=== PATIENT | male | born 1945 | race Caucasian/White ===

== ENCOUNTER 2016-11-07 10:29 | Outpatient (CLI) | payer MEDICARE, MEDICAID ==
[~2016-11-07] VITALS: Ht 179.1 cm; Wt 120.0 kg
--- NOTE | ~2016-11-07 | HEMODYNAMI ---
PATIENT:OBED ARGUETA JR MEDICAL RECORD: [id number] : 45 LOCATION:[facility] ADMISSION DATE: 11/07/16 Generatedon:11/07/201613:56 Patient name: OBED ARGUETA Patient #: [id number] SSN: : 1945 Date of study: 11/07/2016 Page: Of Hemodynamic Procedure Report Patient Data Patient Demographics Procedure consent was obtained First Name: OBED Gender: Male Last Name: ELLIE Suffix: [facility] Initial: Maddie : 1945 Patient #: [id number] Age: 71 year(s) Race: Additional ID: [id number] Contact details Address: [address] [place] [address] a[address] State: [place] City: [facility] Zip code: [address] Past Medical History Allergies: No known allergies Admission Admission Data Admission Date: 11/07/2016 Admission Time: 10:29 Lab Results Lab Result Date: 11/07/2016 Lab Result Time: 11:00 Biochemistry Name Units Result Min Max BUN mg/dl 27 --(----)-* 7 18 Creatinine mg/dl 1.5 --(----)-* 0.6 1.3 CBC Name Units Result Min Max Hematocrit % 39.7 -*(----)-- 42 54 Hemoglobin g/dl 13.5 --(*---)-- 13.5 17.5 Procedure Procedure Types Cath Procedure Diagnostic Procedure LHC LH w/Coronaries FFR/IVUS Intra-Coronary IVUS Initial PCI Procedure Coronary Stent Initial Miscellaneous Procedures Moderate Sedation up to 30 minutes Procedure Description Procedure Date Procedure Date: 11/07/2016 Procedure Start Time: 13:19 Procedure End Time: 13:49 Procedure Staff Name Function Hussain Morse MD Performing Physician June Langston RN Nurse Marielena Eisenberg RT Scrub Sonido Caballero RT Monitor Procedure Data Cath Procedure Fluoroscopy Diagnostic fluoroscopy Total fluoroscopy Time: 5.1 time: 5.1 min min Diagnostic fluoroscopy Total fluoroscopy dose: 901 dose: 901 mGy mGy Contrast Material Contrast Material Type Amount (ml) Isovue 300 139 Entry Location Entry Primary Successful Side Size Upsize Upsize Entry Closure Succes sful Closure Location (Fr) 1 (Fr) 2 (Fr) Remarks Device Remarks Femoral Right 5 Fr 6 Fr Exoseal artery Short Estimated blood loss: 10 ml Diagnostic catheters Device Type Used For End Catheter Placement Cordis 5Fr JL 4.0 Procedure Catheter (MP) Cordis 5Fr 3DRC Catheter Procedure (MP) Cordis 5Fr Pigtail Procedure Catheter (MP) Procedure Complications No complications Procedure Medications Medication Administration Route Dosage Oxygen NC 2 l/min Lidocaine 2% added to field 20 Heparin Flush Bag added to field 2 bags (1000units/500ml NS) 0.9% NaCl I.V. 100 ml/hr Versed I.V. 1 mg Fentanyl I.V. 50 mcg Heparin Bolus I.V. 52911 units Versed I.V. 0.5 mg Fentanyl I.V. 25 mcg Plavix P.O. 600 mg Hemodynamics Rest HGB: 13.5 (g/dl) Heart Rate: 84 (bpm) Pressure Samples Time Site Value (mmHg) Purpose Heart Use Rate(bpm) 13:28 LV 234/7,40 Snapshot 88 13:29 AO 232/120(172) Pullback 89 13:29 LV 236/8,43 Pullback 89 Gradients Valve Time Site 1 Site 2 Mean SEP/DFP Peak To Heart Use (mmHg) (sec/min) Peak Rate (mmHg) (bpm) Aortic 13:29 LV AO 11 19 4 89 236/8,43 232/120(172) Calculations Valve P-P Mean Valve Index Valve Source Name Gradient Area Flow (cm2) Aortic 4 11 4 11 Snapshots Pre Cath Intra NCS Post Cath Vital Signs Time Heart Resp SPO2 etCO2 RC3ldgf NIBP (mmHg) Rhythm Pain Sedatio n Rate (ipm) (%) (mmHg) (mmHg) Status Level (bpm) 13:03:31 78 17 97 0 0 203/118(164) NSR 0 (11) 10(A) , No pain 13:08:11 77 18 97 0 0 207/129(175) NSR 0 (11) 10(A) , No pain 13:12:50 84 15 97 0 0 199/119(175) NSR 0 (11) 10(A) , No pain 13:17:29 82 22 96 0 0 195/109(157) NSR 0 (11) 10(A) , No pain 13:22:07 82 16 99 0 0 201/126(155) NSR 0 (11) 10(A) , No pain 13:26:50 84 17 99 0 0 208/131(176) NSR 0 (11) 9(A) , No pain 13:31:36 84 16 98 0 0 222/127(179) NSR 0 (11) 9(A) , No pain 13:36:13 84 17 98 0 0 183/112(168) NSR 0 (11) 9(A) , No pain 13:40:47 84 14 99 0 0 195/118(157) NSR 0 (11) 9(A) , No pain 13:45:28 85 16 100 0 0 213/121(167) NSR 0 (11) 10(A) , No pain 13:50:17 85 17 100 0 0 209/133(181) NSR 0 (11) 10(A) , No pain Medications Time Medication Route Dose Verified Delivered Reason Notes Effectiveness by by 13:04:23 Oxygen NC 2 Hussain Buffie used for l/min Lamont Langston RN procedure 13:18:36 Lidocaine 2% added 20ml Hussain Hussain for local to vial Lamont Morse MD anesthetic field 13:18:43 Heparin Flush added 2 bags Hussain Hussain used for Bag to Lamont Morse MD procedure (1000units/500ml field NS) 13:18:53 0.9% NaCl I.V. 100 Hussain Buffie Per physician ml/hr Lamont Langston RN 13:21:41 Versed I.V. 1 mg Hussain Buffie for sedation Lamont Langston RN 13:21:47 Fentanyl I.V. 50 mcg Hussain Buffie for sedation Lamont Langston RN 13:32:37 Heparin Bolus I.V. 12,000 Hussain Buffie for verif ied units Lamont Langston RN anticoagulation with dr morse 13:37:13 Versed I.V. 0.5 mg Hussain Buffie for sedation Lamont Langston RN 13:37:17 Fentanyl I.V. 25 mcg Hussain Buffie for sedation Morse MD Langston RN 13:54:25 Plavix P.O. 600 mg Hussain Langston RN antiplatelet therapy Procedure Log Time Note 12:51:39 Milton Jess RT (R) (CV) sent for patient. Start room use. 12:51:55 Time tracking: Regular hours 12:52:08 Plan of Care:Hemodynamics will remain stable., Cardiac rhythm will remain stable., Comfort level will be maintained., Respiratory function will remain adequate., Patient/ family verbilizes understanding of procedure., Procedure tolerated without complication., Recovers from procedure without complications.. 12:52:43 Patient received from Pre/Post Procedure Room to CCL 1 Alert and oriented. Tansferred to table in Supine position. 12:52:50 Warm blankets applied, and erwin hugger turned on for patient comfort. 12:52:50 Correct patient and procedure confirmed by team. 12:52:51 Signed procedure consent form obtained from patient. 12:52:52 ECG and BP/O2 sat monitors applied to patient. 12:52:53 Full Disclosure recording started 13:00:53 Vital chart was started 13:04:23 Oxygen 2 l/min NC was administered by June Langston RN; used for procedure; 13:13:20 H&P Date Dictated: 10/09/2016 Within 30 days and on chart., H&P Addendum completed by physician on day of procedure. (MUST COMPLETE FOR ALL OUTPATIENTS). 13:13:22 Pre-procedure instructions explained to patient. 13:13:22 Pre-op teaching completed and patient verbalized understanding. 13:13:23 Family in waiting room. 13:13:25 Patient NPO since Midnight. 13:13:32 Patient allergic to No known allergies 13:13:46 Is the patient allergic to Iodine/contrast media? No. 13:13:53 Is patient on blood thinner?No 13:14:03 Patient diabetic? Yes. 13:14:06 If diabetic: On Metformin? No 13:14:11 Snore? Yes 13:14:14 Sleep apnea? Yes 13:14:24 Deviated septum? No 13:14:24 Opens mouth fully? Yes 13:14:25 Sticks out tongue? Yes 13:14:28 Airway obstruction? No ? 13:14:32 Dentures? No ? 13:14:46 Patient pain scale 0/10 ?. 13:14:53 IV patent on arrival in left hand with 0.9% NaCl at [facility]. 13:15:27 Lab Result : BUN 27 mg/dl 13:15:27 Lab Result : Hemoglobin 13.5 g/dl 13:15:27 Lab Result : Creatinine 1.5 mg/dl 13:15:27 Lab Result : Hematocrit 39.7 % 13:15:29 Lab results completed and on chart. 13:15:32 Right groin area was prepped with chlora-prep and draped in sterile fashion 13:15:35 Alarms reviewed by R. N. 13:15:37 Use device set Femoral Dx 13:15:38 Tegaderm 4 x 4 opened to sterile field. 13:15:39 Acist Manifold opened to sterile field. 13:15:39 Acist Hand Control opened to sterile field. 13:15:41 Acist Syringe opened to sterile field. 13:15:41 Bag Decanter opened to sterile field. 13:15:41 Medline Cath Pack opened to sterile field. 13:15:42 Terumo 5Fr [place] Sheath opened to sterile field. 13:15:42 St Shorty 260cm J .035 wire opened to sterile field. 13:15:44 Diagnostic Infinity 5Fr Multipack catheter opened to sterile field. 13:15:55 Baseline sample Acquired. 13:16:00 Rhythm: sinus rhythm 13:16:05 Sharps counted by scrub and verified by R.N. 13:16:10 Physician arrived 13:16:11 --------ALL STOP TIME OUT------ 13:16:11 Final Timeout: patient, procedure, and site verified with staff and physician. All members of the team are in agreement. 13:16:13 Right groin site verified by team. 13:16:15 Physical assessment completed. ASA score P 2 - A patient with mild systemic disease as per Hussain Morse MD. 13:16:18 Sedation plan: IV Moderate Sedation Versed, Fentanyl 13:18:36 Lidocaine 2% 20ml vial added to field was administered by Hussain Morse MD; for local anesthetic; 13:18:43 Heparin Flush Bag (1000units/500ml NS) 2 bags added to field was administered by Hussain Morse MD; used for procedure; 13:18:53 0.9% NaCl 100 ml/hr I.V. was administered by June Langston RN; Per physician; 13:19:18 Procedure started. 13:19:20 Local anesthetic to right femoral artery with Lidocaine 2% by Hussain Morse MD.INITIAL ACCESS ONLY 13:19:38 A 5 Fr sheath was inserted into the Right Femoral artery 13:21:09 A Cordis 5Fr JL 4.0 Catheter (MP) was advanced over the wire and used for Procedure. 13:21:41 Versed 1 mg I.V. was administered by June Langston RN; for sedation; 13::47 Fentanyl 50 mcg I.V. was administered by June Langston RN; for sedation; 13:22:22 LCA angiography performed. 13:25:49 Catheter exchanged over wire. 13:26:02 A Cordis 5Fr 3DRC Catheter (MP) was advanced over the wire and used for Procedure. 13:26:52 RCA angiography performed. 13:27:30 A Cordis 5Fr Pigtail Catheter (MP) was advanced over the wire and used for Procedure. 13:28:28 LV gram done using CULLEN 13:28:36 Injector settings: Ml/sec: 10, Volume: 20, 13:28:50 EF : 35 % 13:29:45 Catheter removed. 13:29:53 Terumo 6Fr [place] Sheath opened to sterile field. 13:29:54 [place] Eagley[place] IVUS Catheter opened to sterile field. 13:29:54 Merit BasixCompak Inflation Kit opened to sterile field. 13:30:08 Sheath upsized to a 6 Fr Short. 13:31:13 Cordis 6FR XBLAD 3.5 guide catheter opened to sterile field. 13:31:26 6 Fr xblad 3.5 guide catheter was inserted over the wire 13:31:38 Laboy BMW [place] 2 J-tip 300cm 0.014 guide wir opened to sterile field. 13:31:54 BMW wire advanced. 13:32:37 Heparin Bolus 12,000 units I.V. was administered by June Langston RN; for anticoagulation; verified with dr morse 13:32:44 High Pressure Extension Tubing (Lamont) opened to sterile field. 13:34:58 Wire advanced across lesion. 13:35:00 IVUS catheter advanced over wire. 13:35:27 IVUS pass to Circ lesion performed. 13:37:13 Versed 0.5 mg I.V. was administered by June Langston RN; for sedation; 13:37:17 Fentanyl 25 mcg I.V. was administered by June Langston RN; for sedation; 13:38:20 IVUS catheter removed over wire. 13:42:32 Inflation Number: 1 A Medtronic Integrity 4.0 X 15 stent was prepped and advanced across the Mid CX. The stent was deployed at 15 MARILUZ for 0:10 (min:sec). 13:46:38 Stent catheter was removed intact over wire. 13:46:39 Wire removed. 13:46:40 Guide catheter removed. 13:46:46 Cordis 6Fr Exoseal opened to sterile field. 13:46:54 Sheath removed intact; hemostasis achieved with Exoseal to the Right Femoral artery. 13:46:56 Procedure ended.(Physican Out) 13:46:58 Fluoroscopy time 05.10 minutes. 13:47:02 Fluoroscopy dose: 901 mGy 13:47:02 Flurop Dose total: 901 13:47:07 Contrast amount:Isovue 300 139ml. 13:47:08 Sharps counted by scrub and verified by R.N. 13:47:09 Insertion/operative site no bleeding no hematoma. 13:47:12 Post-op/insertion site Right Femoral artery dressed using a 4 x 4 and Tegaderm. 13:47:16 Post right femoral artery:stable, soft, clean and dry 13:47:18 Post Procedure Pulses reassessed and unchanged 13:47:21 Post-procedure physical assessment completed. ASA score P 2 - A patient with mild systemic disease as per Hussain Morse MD. 13:47:23 Post procedure rhythm: unchanged. 13:47:26 Estimated blood loss: 10 ml 13:47:32 Post procedure instruction explained to patient.Patient verbalizes understanding. 13:47:35 Patient needs reinforcement of post procedure teaching. 13:48:11 Procedure type changed to Cath procedure, Diagnostic procedure, LHC, LHC w/Coronaries, FFR/IVUS, Intra-Coronary IVUS Initial, PCI procedure, Coronary Stent Initial, Miscellaneous Procedures, Moderate Sedation up to 30 minutes 13:48:38 Procedure and supply charges have been captured, reviewed, submitted and are correct. 13:48:45 Procedure Complication : No complications 13:49:30 Vital chart was stopped 13:49:31 See physician's report for complete and final results. 13:49:32 Report given to Pre/Post Procedure Room. 13:49:35 Patient transfered to Pre/Post Procedure Room with Stretcher. 13:49:38 Procedure ended. 13:49:38 Full Disclosure recording stopped 13:49:45 End room use (Document Last) 13:51:32 St Shorty Femstop Arch Gold opened to sterile field. 13:54:25 Plavix 600 mg P.O. was administered by June Langston RN; for antiplatelet therapy; 13:55:41 St Shorty Femstop Arch Gold opened to sterile field. 13:55:55 Femstop placed over the right femoral artery at 220 mmHg. Hemostasis achieved. Intervention Summary Intervention Notes Time ActionType Lesion and Equipment Action# Pressure Duration Attributes Used 13:42:32 Place stent Mid CX Medtronic 1 15 00:10 Integrity 4.0 X 15 stent Device Usage Item Name Manufacture Quantity Catalog Hospital Part Current Minimal L ot# / Number Charge Number Stock Stock Serial# Code Tegaderm 4 3M 1 [id number] 848320 [id number] 5 x 4 Acist Acist 1 50592 653951 056075 457458 5 Manifold Medical Systems Inc Acist Hand Acist 1 90013 228747 773427 054134 5 Control Medical Systems Inc Acist Acist 1 94541 035350 884951 017818 20 Syringe Medical Systems Inc Bag Microtek 1 2002S 306577 92045 160861 5 Decanter Medical Inc. Medline Cardinal 1 [id number] 646580 44394 973313 5 Cath Pack Health Terumo 5Fr Terumo 1 [id number] 768812 213368 647298 [address] [place] [address] Shorty 1 485750 733545 323481 215984 30 260cm J .035 wire Diagnostic Cardinal 1 [id number] 944572 12771 857752 30 Infinity Health 5Fr Multipack catheter Cordis 5Fr Cardinal 1 905317 5 JL 4.0 Health Catheter (MP) Cordis 5Fr Cardinal 1 320477 5 3DRC Health Catheter (MP) Cordis 5Fr Cardinal 1 056497 5 Pigtail Health Catheter (MP) Terumo 6Fr Terumo 1 [id number] 799830 723672 561972 40 [place] Sheath [place] 1 [id number] 351035 442106 378085 8 [place] Eagleye IVUS Catheter Merit Merit 1 [id number] 459262 579719 396948 15 BasixCompak Medical Inflation Kit Cordis 6FR Cardinal 1 [id number] 155007 584382 304626 10 XBLAD 3.5 Health guide catheter Laboy BMW Laboy 1 [id number] 001398 674409 226374 5 [place] 2 Vascular J-tip 300cm 0.014 guide wir High Merit 1 [id number] 416801 46181 087260 10 Pressure Medical Extension Tubing (Morse) Medtronic Medtronic 1 [id number] 372363 623915 1 0 [id number] Integrity 4.0 X 15 stent Cordis 6Fr Cardinal 1 EX600 726637 564992 414588 [address] [facility] [address] Shorty 2 [id number] 498644 722487 499547 5 Femstop Arch Gold Signature Audit [place] Stage Time Signature Unsigned Intra-Procedure 11/07/2016 Sonido Caballero 1:56:46 PM RT(R) Signatures Monitor : Sonido Caballero RT Signature : Date : Time : [place] [address] [place] [address]
[~2016-11-07 10:29] MED LIST: ALDACTONE25 MG PO; ANUSOL-HC25 MG RC; ASPERCREME 5 OZ5 OZ TOPICAL; ASPIRIN EC81 M1 PO; ASPIRIN325 MG PO; BAYER CHEWABLE81 MG PO; CELEBREX200 MG PO; FLOMAX0.4 MG PO; FUROSEMIDE20 MG PO; GLUCOTROL ER2.5 MG PO; HUMALOG 30100 UNITS/ SC; HYDRALAZINE HCL10 MG PO; KLONOPIN0.5 MG PO; KLOR-CON 1010 MEQ PO; LASIX40 MG PO; LIPITOR10 MG PO; LOTRISONE CREAM45 GM TOPICAL; MAG-OXIDE400 MG PO; MIRALAX17 GM PO; NYSTATIN1 PWD TOPICAL; PAXIL20 MG PO; PHENERGAN25 MG RC; POTASSIUM CHLO10 ME1 PO; PRILOSEC20 MG PO; PRINIVIL10 MG PO; PROAIR HFA8.5 GM INH; PROTONIX40 MG PO; PROVIGIL200 MG PO; SPIRIVA18 MCG INH; ZAROXOLYN5 MG PO; ZOFRAN4 MG PO; ZYLOPRIM100 MG PO; ZYLOPRIM300 MG PO
[2016-11-07 10:55] VITALS: BP 197/104; Ht 179.1 cm; Wt 120.0 kg
[2016-11-07] MEDS ORDERED: LASIX40 MG PO (11:01)
[2016-11-07] MEDS ORDERED: HYDRALAZINE HCL10 MG PO (11:01)
[2016-11-07 11:07] LABS: BASOPHILS 0.4 % (0-2); EOSINOPHILS 3.3 % (0-7); HEMATOCRIT 39.7 % (42.0-54.0); HEMOGLOBIN 13.5 g/dL (13.5-17.5); IMMATURE GRANULOCYTES 0.5 % (0-5); LYMPHOCYTES 23.4 % (15-50); MCH 27.8 pg (26.0-34.0); MCV 81.7 fL (80.0-100.0); MEAN PLATELET VOLUME 10.6 fL (7.4-10.4); MONOCYTES 9.4 % (2-11); PLATELET COUNT 175 10x3/uL (130-400); RBC 4.86 10x6/uL (4.20-6.10); RDW 13.9 % (11.5-14.5); WBC 5.5 10x3/uL (4.8-10.8)
[2016-11-07 11:15] LABS: ANION GAP 8.6 mmol/L (8-16); CALCIUM 8.6 mg/dL (8.5-10.1); CARBON DIOXIDE 30.8 mmol/L (21.0-32.0); CREATININE - SERUM 1.5 mg/dL (0.6-1.3); POTASSIUM - SERUM 3.4 mmol/L (3.5-5.1)
--- NOTE | 2016-11-07 14:20 | NUR ---
2L NC, NO RESP DISTRESS NOTED. RIGHT GROIN 6F EXOSEAL CDI, NO BLEEDING NOTED. FEMSTOP IN PLACE @ 180. NO C/O CHEST PAIN OR NAUSEA. VSS.
[2016-11-07] MEDS ORDERED: PLAVIX75 MG PO (14:35)
--- NOTE | 2016-11-07 14:50 | NUR ---
2L NC, NO RESP DISTRESS NOTED. VSS. RIGHT GROIN 6F EXOSEAL CDI, NO BLEEDING OR HEMATOMA NOTED. FEMSTOP IN PLACE. CALL LIGHT WITHIN REACH.
--- NOTE | 2016-11-07 15:05 | NUR ---
FEMSTOP PRESSURE DECREASED BY 20. NO BLEEDING NOTED.
--- NOTE | 2016-11-07 15:35 | NUR ---
FEMSTOP PRESSURE AT 90. NO BLEEDING NOTED. VSS. NO C/O AT THIS TIME.
--- NOTE | 2016-11-07 16:05 | NUR ---
REMAINING AIR REMOVED FROM FEMSTOP. NO BLEEDING OR HEMATOMA NOTED. VSS. NO C/O OF PAIN OR NAUSEA. WILL CONTINUE TO MONITOR.
--- NOTE | 2016-11-07 17:45 | NUR ---
VOIDED 300CC OF CLEAR YELLOW URINE.
--- NOTE | 2016-11-07 18:10 | NUR ---
LEFT FA PIV D/C'D WITH CATHETER INTACT, BAND AID TO SITE. UP TO BEDSIDE TO GET DRESSED.
--- NOTE | 2016-11-07 18:20 | NUR ---
DISCHARGE INSRUCTIONS GIVEN, VERBALIZED UNDERSTANDING.
--- NOTE | 2016-11-07 18:25 | NUR ---
TAKEN OUT VIA WHEELCHAIR BY CATH CLOTH CUTTER. LEFT FACILITY WITH FAMILY MEMBER AND ALL PERSONAL BELONGINGS.
== END 2016-11-07 18:25 | disposition home or self-care (01) ==
LOC: D.CATH 10:29
PROVIDERS: Internal Medicine Cardiovascular Disease
DX: I25.119 Atherosclerotic heart disease of native coronary artery with unspecified angina pectoris (principal); Z01.812 Encounter for preprocedural laboratory examination

== ENCOUNTER 2016-11-20 19:40 | Inpatient (IN) | payer MEDICARE, MEDICAID ==
[~2016-11-20] VITALS: Ht 177.8 cm; Wt 118.4 kg
[~2016-11-20 19:40] MED LIST changes: +PLAVIX75 MG PO
[2016-11-20 20:27] LABS: BASOPHILS 0.4 % (0-2); EOSINOPHILS 2.9 % (0-7); HEMATOCRIT 42.8 % (42.0-54.0); HEMOGLOBIN 14.5 g/dL (13.5-17.5); IMMATURE GRANULOCYTES 0.2 % (0-5); LYMPHOCYTES 21.3 % (15-50); MCH 27.8 pg (26.0-34.0); MCHC 33.9 g/dL (31.0-37.0); MEAN PLATELET VOLUME 10.9 fL (7.4-10.4); MONOCYTES 6.7 % (2-11); NEUTROPHILS 68.5 % (40-80); PLATELET COUNT 173 10x3/uL (130-400); RBC 5.22 10x6/uL (4.20-6.10); RDW 14.2 % (11.5-14.5); WBC 5.2 10x3/uL (4.8-10.8)
[2016-11-20 20:28] LABS: APPEARANCE CLEAR (CLEAR); COLOR YELLOW (YELLOW); LEUKOCYTE ESTERASE NEGATIVE (NEGATIVE); NITRITE NEGATIVE (NEGATIVE)
[2016-11-20 20:29] LABS: BILIRUBIN NEGATIVE (NEGATIVE); GLUCOSE NEGATIVE (NEGATIVE); KETONE NEGATIVE (NEGATIVE); PROTEIN TRACE mg/dL (NEGATIVE); UROBILINOGEN NORMAL (NORMAL)
[2016-11-20 20:57] LABS: ALBUMIN 3.5 g/dL (3.4-5.0); ANION GAP 15.1 mmol/L (8-16); BILIRUBIN - TOTAL 0.5 mg/dL (0.2-1.3); CALCIUM 8.5 mg/dL (8.5-10.1); CREATININE - SERUM 1.5 mg/dL (0.6-1.3); POTASSIUM - SERUM 3.1 mmol/L (3.5-5.1); PROTEIN - SERUM 7.3 g/dL (6.4-8.2)
--- NOTE | 2016-11-20 23:13 | NUR ---
REPORT ON PT FROM SON TONEY FROM ER.
--- NOTE | 2016-11-20 23:27 | NUR ---
PT ARRIVED TO UNIT. WALKED TO RESTROOM VOIDED A LARGE AMOUNT. PT DENIES FEELING DIZZY. PT NOTIFIED OF ORDER TO BE ON BED REST. WILL GET PT A URINAL. PT ALSO NOTIFIED OF NEEDING SCD'S AND EDUCATION ON THAT VERBALIZED AND PT VERBALIZED UNDERSTANDING. PT NOTIFIED OF MONITOR. WILL GET TELEMETRY FROM PHOTO CHECKER. PT STATES " I FEEL FINE. I FEEL SO GOOD I COULD WALK OUT OF HERE" PT CALL LIGHT IN REACH AND BED IS LOW. PT WILL CALL FOR ASSIST WHEN NEEDED
[2016-11-21] VITALS (7 sets, daily range): BP systolic 148–187; BP diastolic 79–97; Ht 177.8 cm; Wt 118.4 kg
--- NOTE | 2016-11-21 03:41 | NUR ---
PT ASLEEP. RESPIRATIONS EVEN AND UNLABORED. BEDLOW AND CALLLIGHT WITHIN REACH. NO S/S OF DISTRESS WILL CONTINUE TO MONITOR
--- NOTE | 2016-11-21 20:42 | NUR ---
PT RESTING IN BED. IV TO LEFT WRIST NS @ 10. NO S/S OF DISTRESS. BED LOW CALLLIGHT WITHIN REACH. WILL CONTINUE TO MONITOR
--- NOTE | 2016-11-22 00:24 | NUR ---
PT RESTING IN ROOM. DENIES ANY NEEDS AT THIS TIME NO S/S OF DISTRESS. WILL CONTINUE TO MONITOR
[2016-11-22 01:00] VITALS: BP 169/63
--- NOTE | 2016-11-22 03:46 | NUR ---
PT ASLEEP. RESPIRATIONS EVEN AND UNLABORED. NO S/S OF DISTRESS WILL CONTINUE TO MONITOR
[2016-11-22 04:21] VITALS: BP 176/88
[2016-11-22 08:00] VITALS: BP 194/97
--- NOTE | 2016-11-22 08:11 | NUR ---
AM ROUNDS - PT IS AWAKE AND IN BED. SCDS ARE OFF AT THIS TIME. PT HAS A YELLOW BAND ON. IV TO LEFT WRIST, NS AT 10CC/HR. MONITOR SHOWING SR, HR 66. BED AT LOWEST POSITION, CALL TORRES INUSE/REACH, SIDE RAILS UP X2. WILL CONTINUE TO MONITOR
[2016-11-22 12:43] VITALS: BP 159/82
[2016-11-22 16:00] VITALS: BP 206/107
--- NOTE | 2016-11-22 19:19 | NUR ---
RECEIVED REPORT, WILL ASSUME CARE OF PT, PT UP TO REST ROOM, DENIES ANY NEEDS, AT THIS TIME, CALL LIGHT IN REACH, WILL CONTINUE PLAN OF CARE
[2016-11-22 20:00] VITALS: BP 146/101
--- NOTE | 2016-11-23 02:11 | NUR ---
ASSESSMENT COMPLETE, SEE FLOW SHEET, DENIES ANY NEEDS AT THIS TIME, BED IS LOW, SRX2, CALL LIGHT IN REACH, WILL CONTINUE PLAN OF CARE
[2016-11-23 04:20] VITALS: BP 186/100
[2016-11-23 08:00] VITALS: BP 179/103
--- NOTE | 2016-11-23 08:34 | NUR ---
SITTING UP ON BEDSIDE EATING BREAKFAST. NO DISTRESS.
--- NOTE | 2016-11-23 10:22 | NUR ---
PATIENT REQUESTED NOT TO BE HOOKED UP TO IV NS. WALKING WANTING TO TAKE A SHOWER AND WALK AROUND ROOM. PATIENT HAS DRANK 620CC OF FLUIDS THIS AM. ASKED FOR A LARGE GLASS OF ICE WATER.
--- NOTE | 2016-11-23 11:02 | NUR ---
DR. ADAME NOTIFIED OF B/P 192. NEW ORDERS RECEIVED.
--- NOTE | 2016-11-23 12:10 | NUR ---
B/P 179/98. DR ADAME HAS STATED THAT HE WILL BE INTO SEE THIS PATIENT TODAY.
[2016-11-23 12:30] VITALS: BP 192/95
[2016-11-23 12:44] VITALS: BP 178/98
--- NOTE | 2016-11-23 14:21 | NUR ---
Nutrition Follow Up: Pt is eating 92% meal avg on a diabetic diet. +BM 11/21/16. Labs reviewed. Meds noted including Humulin. Rec continue current diet. RD following.
[2016-11-23 15:38] VITALS: BP 131/70
--- NOTE | 2016-11-23 16:51 | NUR ---
GLUCOSE LEVEL 166. PATIENT REFUSED SLIDING SCALE INSULIN
[2016-11-23 19:00] VITALS: BP 188/98
--- NOTE | 2016-11-23 19:20 | NUR ---
RETURNING TO BED FROM BATHROOM. ORIENTED X 4. DENIES PAIN OR ANY NEEDS. TELEMETRY SHOWS 69 SR. REFUSED SCD'S ON. HAS CALL LIGHT IN REACH.
--- NOTE | 2016-11-23 22:35 | NUR ---
PULLED IV OUT. RESITED IN RT HAND 22G. C/O NO BM SINCE SUNDAY. GAVE HIM SOME PRUNE JUICE.
[2016-11-24] VITALS: BP 161/74
[2016-11-24 04:00] VITALS: BP 133/79
--- NOTE | 2016-11-24 05:45 | NUR ---
RETURNING TO BED FROM BR. STATED HE HAD A BM, CONSISITING OF SMALL FORMED STOOL. CHECKED BS AT 107.
[2016-11-24 08:01] VITALS: BP 176/90
[2016-11-24 11:52] VITALS: BP 178/92
[2016-11-24 16:07] VITALS: BP 179/88
--- NOTE | 2016-11-24 16:12 | NUR ---
BLOOD SUGAR OF 109, NO COVERAGE GIVEN PER S/S. PT UP TO SIDE OF BED, DENIES ANY NEEDS AT THIS TIME. CALL LIGHT IN REACH, NAD NOTED. WILL CONTINUE TO MONITOR.
[2016-11-24 19:00] VITALS: BP 178/89
--- NOTE | 2016-11-24 21:50 | NUR ---
REQUESTED ANOTHER BLANKET. CHECKED BLOOD SUGAR AT 147. DENIES ANY NEEDS OR DISCOMFORTS.
--- NOTE | 2016-11-25 02:35 | NUR ---
LYING ON LEFT SIDE WITH EYES CLOSED. NO S/S OF DISCOMFORT. CL IN REACH.
[2016-11-25 04:00] VITALS: BP 172/86
--- NOTE | 2016-11-25 07:30 | NUR ---
RECEIVED REPORT. ASSUMED CARE OF PATIENT. PATIENT SITTING TO SIDE OF BED. ALERT/ORIENTED. RESP EVEN AND UNLABORED. PATIENT STATES THAT HE MIGHT GET TO GO HOME TODAY. PATIENT PLEASANT. DENIES NEEDS AT THIS TIME. NO DISTRESS. CALL LIGHT WITHIN REACH.
[2016-11-25 08:00] VITALS: BP 194/100
[2016-11-25] MEDS ORDERED: PLAVIX75 MG PO (10:54)
[2016-11-25] MEDS ORDERED: SPIRIVA18 MCG INH (10:54)
[2016-11-25] MEDS ORDERED: HYDRALAZINE HCL10 MG PO (10:55)
[2016-11-25] MEDS ORDERED: ASPIRIN EC81 M1 PO (10:55)
[2016-11-25] MEDS ORDERED: PAXIL20 MG PO (10:55)
[2016-11-25] MEDS ORDERED: LIPITOR10 MG PO (10:55)
[2016-11-25] MEDS ORDERED: LASIX40 MG PO (10:55)
[2016-11-25] MEDS ORDERED: ZYLOPRIM100 MG PO (10:55)
[2016-11-25] MEDS ORDERED: GLUCOPHAGE500 MG PO (10:56)
--- NOTE | 2016-11-25 11:19 | NUR ---
FSBA 127. NO INSULIN PER SLIDING SCALE.
[2016-11-25 11:53] VITALS: BP 151/66
--- NOTE | 2016-11-25 14:11 | NUR ---
1315 22 GAUGE IV REMOVED FROM RIGHT WRIST. CATHETER TIP INTACT. NO BLEEDING FROM SITE. 2X2 GAUZE APPLIED AND SECURED WITH TAPE. TOLERATED IV REMOVAL WELL. 1318 TELEMETRY REMOVED 1320 DISCHARGE INSTRUCTIONS PROVIDED TO PATIENT. PATIENT'S MEMBERSHIP ADVISOR ALSO PRESENT DURING DISCHARGE INSTRUCTIONS. PATIENT VERBALIZED ALL INSTRUCTIONS PROVIDED. 1330 PATIENT LEFT UNIT IN WHEELCHAIR. PATIENT LEFT UNIT WITH ALL PERSONAL BELONGINGS. PATIENT DISCHARGED TO HOME VIA PERSONAL CAR. PATIENT IN NO DISTRESS UPON LEAVING UNIT.
--- NOTE | 2016-11-25 14:52 | NUR ---
LATE ENTRY 1130 CM NOTIFIED OF PATIENT DISCHARGE. HE IS 71 YEARS OF AGE. DISCHARGE STATES RETURN TO [facility]. HIS FACE SHEET STATES HE LIVES IN AN APARTMENT. LATE ENTRY 1130 CM MET WITH PATIENT AT THE BEDSIDE. HE LIVES IN AN APARTMENT. HE HAS SERVICES WITH [facility] ON [address]. HE STATES HE RECEIVECS CARE FROM A SERIALS LIBRARIAN NAMED OSKAR BERNABE OR JONY. CM WILL CALL [facility] ON SUNDAY THE OFFICE IS NOT AVAILABLE ON THE WEEKEND. HE HAS NOTIFIED HIS IMPORT COORDINATOR "[employer]" TO PROVIDE TRANSPORTATION TO HOME. HE FEELS SAFE. ALL OF HIS UTILITIS WERE FUNCTIONAL WHEN HE LEFT HOME. HE OCCASIONALLY UTILIZES A CANE AND WALKER. HE HAS A SHOWER CHAIR AND SAFETY BARS IN THE SHOWER. DENIES ANY NEEDS. PCP - DR ADAME [facility]ACY- [facility]
== END 2016-11-25 13:45 | disposition home or self-care (01) | DRG 190 ==
LOC: D.ER 19:40 → D.M2 22:43
PROVIDERS: Emergency Medicine; ADMIT Legal Medicine
DX: J44.0 Chronic obstructive pulmonary disease with (acute) lower respiratory infection (principal); J18.9 Pneumonia, unspecified organism; K56.60 Unspecified intestinal obstruction; R60.0 Localized edema; I25.10 Atherosclerotic heart disease of native coronary artery without angina pectoris; E87.6 Hypokalemia; Z79.4 Long term (current) use of insulin; E11.22 Type 2 diabetes mellitus with diabetic chronic kidney disease; I12.9 Hypertensive chronic kidney disease with stage 1 through stage 4 chronic kidney disease, or unspecified chronic kidney disease; N18.3 Chronic kidney disease, stage 3 (moderate); K29.70 Gastritis, unspecified, without bleeding

== ENCOUNTER → 2017-02-02 10:14 | Outpatient (CLI) | payer MEDICARE, MEDICAID ==
[2016-11-21 13:46] VITALS: BMI 37.0
[~2017-02-02 10:14] MED LIST changes: +GLUCOPHAGE500 MG PO
== END | disposition home or self-care (01) ==
LOC: D.RAD 10:14
DX: M25.551 Pain in right hip (principal)

== ENCOUNTER 2017-09-09 07:32 | Emergency (ER) | payer MEDICARE, MEDICAID ==
[2016-11-21 13:46] VITALS: BMI 37.0
[2017-09-09 08:55] LABS: BASOPHILS 0.2 % (0-2); EOSINOPHILS 2.7 % (0-7); HEMATOCRIT 38.2 % (42.0-54.0); HEMOGLOBIN 12.3 g/dL (13.5-17.5); IMMATURE GRANULOCYTES 0.2 % (0-5); LYMPHOCYTES 15.9 % (15-50); MCH 26.5 pg (26.0-34.0); MCHC 32.2 g/dL (31.0-37.0); MCV 82.3 fL (80.0-100.0); MEAN PLATELET VOLUME 10.5 fL (7.4-10.4); MONOCYTES 11.6 % (2-11); NEUTROPHILS 69.4 % (40-80); PLATELET COUNT 171 10x3/uL (130-400); RBC 4.64 10x6/uL (4.20-6.10); RDW 16.6 % (11.5-14.5); WBC 5.9 10x3/uL (4.8-10.8)
[2017-09-09 09:25] LABS: ALBUMIN 2.6 g/dL (3.4-5.0); BILIRUBIN - TOTAL 0.7 mg/dL (0.2-1.3); CALCIUM 8.4 mg/dL (8.5-10.1); CARBON DIOXIDE 31.5 mmol/L (21.0-32.0); CREATININE - SERUM 2.2 mg/dL (0.6-1.3); POTASSIUM - SERUM 3.5 mmol/L (3.5-5.1); PROTEIN - SERUM 6.5 g/dL (6.4-8.2)
== END 2017-09-09 12:05 | disposition home or self-care (01) ==
LOC: D.ER 07:32
PROVIDERS: Family Medicine
DX: R60.0 Localized edema (principal); J44.9 Chronic obstructive pulmonary disease, unspecified; I12.9 Hypertensive chronic kidney disease with stage 1 through stage 4 chronic kidney disease, or unspecified chronic kidney disease; N18.9 Chronic kidney disease, unspecified

== ENCOUNTER 2017-09-21 16:04 | Inpatient (IN) | payer MEDICARE, MEDICAID ==
[~2017-09-21] VITALS: Ht 177.8 cm; Wt 101.3 kg
--- NOTE | ~2017-09-21 | EC ---
PATIENT:OBED ARGUETA DATE OF SERVICE: 09/21/17 SEX: M MEDICAL RECORD: [id number] DATE OF : [birth year] LOCATION:D. D.211 AGE OF PATIENT: 72 ADMISSION DATE: 09/23/17 REFERRING PHYSICIAN: INTERPRETING PHYSICIAN: ANA ROSA DANG MD ECHOCARDIOGRAM REPORT ECHO CHARGES 4 ECHO COMPLETE Date: 09/22 CLINICAL DIAGNOSIS: ELEVATED BNP ECHOCARDIOGRAPHIC MEASUREMENTS (adult normal given) AC root (d.<3.7cm) 2.6 cm LV Septum d (<1.2 cm> 1.5 cm Valve Excursion 1.4 cm LV Septum (systole) 1.7 cm Left Atria (s.<4.0cm> 3.8 cm LVPW d(<1.2cm) 1.3 cm RV (d.<2.3cm) 6.0 cm LVPW (sytole) 1.7 cm LV diastole(<5.6CM) 4.3 cm MV E-F(>70mm/sec) cm LV systole 2.9 cm LVOT Diameter 1.8 cm MV exc.(>10mm) 2.0 cm Est.ejection fraction (50-75%) % DOPPLER: LVIT cm/sec A 85.0 cm/sec E 78.0 cm/sec LA cm/sec RVSP 37 mmHg LVOT 114 cm/sec AOP1/2T m/s Asc. Ao 147 cm/sec RVOT 98 cm/sec RA cm/sec PA 113 cm/sec AV Gradient Peak 8.69 mmHg AV Mean 4.93 mmHg AV Area 2.2 cm MV Gradient Peak 6.54 mmHg MV Mean 2.20 mmHg MV Area cm COMMENTS: Manager Photography: 2 [place] Vamp Stitcher: 4 Dr. Dang TAPE# PACS Pericardial Effusion N DATE OF SERVICE: PROCEDURE: Transthoracic echocardiogram. FINDINGS: 1. The left ventricle has mild left ventricular hypertrophy and preserved LV systolic function. Ejection fraction 55%. No obvious regional wall motion abnormalities. 2. Inflow characteristics consistent with diastolic dysfunction. 3. The left atrium is normal. ECHOCARDIOGRAM REPORT [id number] OBED ARGUETA JR 3. The aortic valve is grossly normal. 4. The mitral valve has good structure and function with mild regurgitation. 5. The tricuspid valve has good structure and function with mild regurgitation. RVSP is 37 mmHg. 6. The right ventricle is severely dilated as well as the right atrium. There is highly mobile interatrial septum. There is a D-shaped septum in the left ventricle, consistent with chronic pressure or volume overload. The RVSP here is difficult to calculate. TR jets were not well defined, appears to be 40 mmHg. There does appear to be dyssynchrony versus hypokinesis in the lateral wall. In the right context, it could be ischemic changes versus the dyssynchrony from the underlying bundle-branch block. TRANSINT:[id number] Voice Confirmation ID: [id number] DOCUMENT ID: [id number] ANA ROSA ADNG MD at 1131 CC: [id number] DICTATION DATE: 09/23/17 0804 MANAGER RN: 09/23/17 1149 ADM IN [facility] [address] [place] [address]
[2017-09-21 17:56] LABS: BASOPHILS 0.2 % (0-2); EOSINOPHILS 3.2 % (0-7); HEMATOCRIT 34.6 % (42.0-54.0); IMMATURE GRANULOCYTES 0.4 % (0-5); LYMPHOCYTES 14.5 % (15-50); MCH 25.7 pg (26.0-34.0); MCHC 31.8 g/dL (31.0-37.0); MCV 80.8 fL (80.0-100.0); MEAN PLATELET VOLUME 10.1 fL (7.4-10.4); MONOCYTES 10.4 % (2-11); NEUTROPHILS 71.3 % (40-80); RBC 4.28 10x6/uL (4.20-6.10); RDW 15.6 % (11.5-14.5); WBC 5.6 10x3/uL (4.8-10.8)
[2017-09-21 18:05] LABS: PLATELET COUNT 235 10x3/uL (130-400)
[2017-09-21 18:14] LABS: ANION GAP 8.8 mmol/L (8-16); BILIRUBIN - TOTAL 0.48 mg/dL (0.2-1.3); CALCIUM 8.2 mg/dL (8.5-10.1); CARBON DIOXIDE 33.2 mmol/L (21.0-32.0); CREATININE - SERUM 1.9 mg/dL (0.6-1.3); PROTEIN - SERUM 6.6 g/dL (6.4-8.2)
[2017-09-21 21:17] LABS: APPEARANCE CLEAR (CLEAR); BILIRUBIN NEGATIVE (NEGATIVE); COLOR YELLOW (YELLOW); GLUCOSE NEGATIVE (NEGATIVE); KETONE NEGATIVE (NEGATIVE); NITRITE NEGATIVE (NEGATIVE); PROTEIN TRACE mg/dL (NEGATIVE); UROBILINOGEN NORMAL (NORMAL)
[2017-09-22 03:03] VITALS: BP 181/99; BMI 39.1
[2017-09-22 04:00] VITALS: BP 156/90
[2017-09-22 05:51] LABS: ANION GAP 11.8 mmol/L (8-16); BILIRUBIN - TOTAL 0.77 mg/dL (0.2-1.3); CALCIUM 8.3 mg/dL (8.5-10.1); CARBON DIOXIDE 30.8 mmol/L (21.0-32.0); CREATININE - SERUM 1.8 mg/dL (0.6-1.3); POTASSIUM - SERUM 3.6 mmol/L (3.5-5.1); PROTEIN - SERUM 6.4 g/dL (6.4-8.2)
[2017-09-22 08:26] VITALS: BP 168/92
[2017-09-22 09:25] VITALS: BMI 39.1
[2017-09-22 11:51] VITALS: BP 152/97
[2017-09-22 11:56] VITALS: Ht 177.8 cm; Wt 101.3 kg
[2017-09-22 12:22] LABS: % SATURATION 8 % (15-55); IRON 25 ug/dl (35-150); TOTAL IRON BIND CAPACITY 279 ug/dl (260-445); UNSAT IRON BIND CAPACITY 254 ug/dl (150-375)
[2017-09-22 16:33] VITALS: BP 169/84
[2017-09-22 19:40] VITALS: BP 138/72
[2017-09-23] VITALS: BP 165/89
[2017-09-23 04:00] VITALS: BP 149/71
[2017-09-23 06:21] LABS: BASOPHILS 0.4 % (0-2); EOSINOPHILS 3.3 % (0-7); HEMATOCRIT 33.4 % (42.0-54.0); HEMOGLOBIN 10.7 g/dL (13.5-17.5); LYMPHOCYTES 14.5 % (15-50); MCH 25.4 pg (26.0-34.0); MCV 79.3 fL (80.0-100.0); MEAN PLATELET VOLUME 10.4 fL (7.4-10.4); MONOCYTES 10.8 % (2-11); PLATELET COUNT 268 10x3/uL (130-400); RBC 4.21 10x6/uL (4.20-6.10); RDW 15.3 % (11.5-14.5); WBC 4.9 10x3/uL (4.8-10.8)
[2017-09-23 06:29] LABS: ANION GAP 8.3 mmol/L (8-16); CALCIUM 7.9 mg/dL (8.5-10.1); CARBON DIOXIDE 32.7 mmol/L (21.0-32.0); CREATININE - SERUM 1.7 mg/dL (0.6-1.3); PHOSPHOROUS 3.6 mg/dL (2.5-4.9)
[2017-09-23 09:25] VITALS: BP 186/102
[2017-09-23 11:21] LABS: CREATININE - URINE 28.9 mg/dL (30-125)
[2017-09-23 12:37] VITALS: BP 175/105
[2017-09-23 17:37] VITALS: BP 181/113
[2017-09-23 20:00] VITALS: BP 177/109
[2017-09-24 04:00] VITALS: BP 163/95
[2017-09-24 06:00] LABS: BASOPHILS 0.2 % (0-2); HEMATOCRIT 35.5 % (42.0-54.0); HEMOGLOBIN 11.5 g/dL (13.5-17.5); IMMATURE GRANULOCYTES 0.2 % (0-5); LYMPHOCYTES 16.7 % (15-50); MCH 25.7 pg (26.0-34.0); MCHC 32.4 g/dL (31.0-37.0); MCV 79.4 fL (80.0-100.0); MEAN PLATELET VOLUME 10.2 fL (7.4-10.4); MONOCYTES 9.1 % (2-11); NEUTROPHILS 70.8 % (40-80); PLATELET COUNT 290 10x3/uL (130-400); RBC 4.47 10x6/uL (4.20-6.10); RDW 15.2 % (11.5-14.5); WBC 5.4 10x3/uL (4.8-10.8)
[2017-09-24 06:09] LABS: ANION GAP 9.8 mmol/L (8-16); CALCIUM 8.3 mg/dL (8.5-10.1); CARBON DIOXIDE 32.7 mmol/L (21.0-32.0); CREATININE - SERUM 1.9 mg/dL (0.6-1.3); PHOSPHOROUS 3.6 mg/dL (2.5-4.9)
[2017-09-24 06:14] LABS: POTASSIUM - SERUM 3.5 mmol/L (3.5-5.1)
[2017-09-24 08:00] VITALS: BP 175/105
[2017-09-24 11:02] VITALS: BP 162/84
[2017-09-24 15:31] VITALS: BP 166/79
[2017-09-24 20:24] VITALS: BP 146/88
[2017-09-25 06:40] LABS: BASOPHILS 0.2 % (0-2); EOSINOPHILS 3.5 % (0-7); HEMATOCRIT 36.9 % (42.0-54.0); HEMOGLOBIN 11.7 g/dL (13.5-17.5); IMMATURE GRANULOCYTES 0.4 % (0-5); LYMPHOCYTES 16.4 % (15-50); MCH 25.5 pg (26.0-34.0); MCHC 31.7 g/dL (31.0-37.0); MCV 80.4 fL (80.0-100.0); MEAN PLATELET VOLUME 10.1 fL (7.4-10.4); MONOCYTES 9.4 % (2-11); NEUTROPHILS 70.1 % (40-80); PLATELET COUNT 300 10x3/uL (130-400); RBC 4.59 10x6/uL (4.20-6.10); RDW 15.4 % (11.5-14.5); WBC 5.4 10x3/uL (4.8-10.8)
[2017-09-25 06:51] LABS: CALCIUM 8.5 mg/dL (8.5-10.1); CARBON DIOXIDE 32.1 mmol/L (21.0-32.0); CREATININE - SERUM 1.8 mg/dL (0.6-1.3); PHOSPHOROUS 3.8 mg/dL (2.5-4.9)
[2017-09-25 07:02] LABS: POTASSIUM - SERUM 4.1 mmol/L (3.5-5.1)
[2017-09-25 07:51] VITALS: BP 141/91
[2017-09-25 10:25] VITALS: BP 136/86
[2017-09-25 15:31] VITALS: BP 136/89
[2017-09-25 20:31] VITALS: BP 126/75
[2017-09-26 04:00] VITALS: BP 129/81
[2017-09-26 05:43] VITALS: BP 137/77
[2017-09-26 06:14] LABS: BASOPHILS 0.3 % (0-2); EOSINOPHILS 4.4 % (0-7); HEMATOCRIT 36.8 % (42.0-54.0); HEMOGLOBIN 11.7 g/dL (13.5-17.5); IMMATURE GRANULOCYTES 0.3 % (0-5); LYMPHOCYTES 15.9 % (15-50); MCH 25.7 pg (26.0-34.0); MCHC 31.8 g/dL (31.0-37.0); MCV 80.9 fL (80.0-100.0); MEAN PLATELET VOLUME 10.1 fL (7.4-10.4); MONOCYTES 12.6 % (2-11); NEUTROPHILS 66.5 % (40-80); PLATELET COUNT 312 10x3/uL (130-400); RBC 4.55 10x6/uL (4.20-6.10); RDW 15.4 % (11.5-14.5); WBC 5.7 10x3/uL (4.8-10.8)
[2017-09-26 06:54] LABS: ANION GAP 11.9 mmol/L (8-16); CALCIUM 8.5 mg/dL (8.5-10.1); CARBON DIOXIDE 32.5 mmol/L (21.0-32.0); CREATININE - SERUM 2.1 mg/dL (0.6-1.3); PHOSPHOROUS 4.7 mg/dL (2.5-4.9); POTASSIUM - SERUM 4.4 mmol/L (3.5-5.1)
[2017-09-26 07:44] VITALS: BP 147/89
[2017-09-26] MEDS ORDERED: COREG 3.1253.125 MG PO (08:16)
[2017-09-26] MEDS ORDERED: COZAAR50 MG PO (08:16)
[2017-09-26] MEDS ORDERED: K-DUR20 MEQ PO (08:17)
[2017-09-26] MEDS ORDERED: LASIX INJ40 MG/4 ML PO (08:17)
[2017-09-26 11:21] LABS: FOLATE (FOLIC ACID) - SERUM 9.7 ng/mL (>3.0)
== END 2017-09-26 10:48 | disposition home health service (06) | DRG 291 ==
LOC: D.ER 16:04 → OBSVTIME 23:16 → D.M2 23:16
PROVIDERS: Family Medicine; Internal Medicine Nephrology; Legal Medicine
DX: I13.0 Hypertensive heart and chronic kidney disease with heart failure and stage 1 through stage 4 chronic kidney disease, or unspecified chronic kidney disease (principal); I50.33 Acute on chronic diastolic (congestive) heart failure; K43.6 Other and unspecified ventral hernia with obstruction, without gangrene; N18.3 Chronic kidney disease, stage 3 (moderate); E11.22 Type 2 diabetes mellitus with diabetic chronic kidney disease; J44.9 Chronic obstructive pulmonary disease, unspecified; F03.90 Unspecified dementia, unspecified severity, without behavioral disturbance, psychotic disturbance, mood disturbance, and anxiety; N28.1 Cyst of kidney, acquired; N43.3 Hydrocele, unspecified; Z86.73 Personal history of transient ischemic attack (TIA), and cerebral infarction without residual deficits

== ENCOUNTER 2017-10-29 18:23 | Emergency (ER) | payer MEDICARE, MEDICAID ==
[~2017-10-29] VITALS: Ht 177.8 cm; Wt 72.7 kg
[~2017-10-29 18:23] MED LIST changes: +COREG 3.1253.125 MG PO; +COZAAR50 MG PO; +K-DUR20 MEQ PO; +LASIX INJ40 MG/4 ML PO
[2017-10-29 18:37] VITALS: Ht 177.8 cm; Wt 72.7 kg
[2017-10-29 20:09] LABS: BASOPHILS 0.4 % (0-2); EOSINOPHILS 4.2 % (0-7); HEMATOCRIT 34.8 % (42.0-54.0); HEMOGLOBIN 11.1 g/dL (13.5-17.5); IMMATURE GRANULOCYTES 0.2 % (0-5); LYMPHOCYTES 24.8 % (15-50); MCH 25.8 pg (26.0-34.0); MCHC 31.9 g/dL (31.0-37.0); MCV 80.9 fL (80.0-100.0); MEAN PLATELET VOLUME 10.1 fL (7.4-10.4); MONOCYTES 8.6 % (2-11); NEUTROPHILS 61.8 % (40-80); RDW 18.2 % (11.5-14.5); WBC 4.6 10x3/uL (4.8-10.8)
[2017-10-29 20:11] LABS: PLATELET COUNT 186 10x3/uL (130-400)
[2017-10-29 20:20] LABS: INR 1.06 (0.85-1.17); PROTIME 13.4 SECONDS (11.6-15.0)
[2017-10-29 20:22] LABS: D-DIMER-QUANTITATIVE 1.75 ug/mLFEU (0.20-0.54)
[2017-10-29 20:47] LABS: ANION GAP 15.1 mmol/L (8-16); BILIRUBIN - TOTAL 0.46 mg/dL (0.2-1.3); CALCIUM 8.8 mg/dL (8.5-10.1); CARBON DIOXIDE 30.9 mmol/L (21.0-32.0); CREATININE - SERUM 2.2 mg/dL (0.6-1.3); PROTEIN - SERUM 6.7 g/dL (6.4-8.2)
[2017-10-29 20:56] LABS: C-REACTIVE PROTEIN 0.4 mg/dL (0.0-0.9); THYROID STIMULATING HORMONE 1.82 uIU/mL (0.36-3.74); TROPONIN-I 0.043 ng/mL (0.000-0.060)
[2017-10-29 22:14] VITALS: BP 133/84
== END 2017-10-29 22:00 | disposition home or self-care (01) ==
LOC: D.ER 18:23
PROVIDERS: Family Medicine
DX: S00.83XA Contusion of other part of head, initial encounter (principal); W05.0XXA Fall from non-moving wheelchair, initial encounter; Y93.89 Activity, other specified; Y92.019 Unspecified place in single-family (private) house as the place of occurrence of the external cause; S02.2XXA Fracture of nasal bones, initial encounter for closed fracture; Z86.73 Personal history of transient ischemic attack (TIA), and cerebral infarction without residual deficits; E11.9 Type 2 diabetes mellitus without complications; I10 Essential (primary) hypertension; J44.9 Chronic obstructive pulmonary disease, unspecified; F03.90 Unspecified dementia, unspecified severity, without behavioral disturbance, psychotic disturbance, mood disturbance, and anxiety

== ENCOUNTER → 2018-07-10 13:06 | Outpatient (CLI) | payer MEDICARE, MEDICAID ==
[2017-10-29 18:37] VITALS: BMI 23.0
== END | disposition home or self-care (01) ==
LOC: D.US 07-05 14:00
PROVIDERS: ATTEND Internal Medicine Nephrology
DX: N28.1 Cyst of kidney, acquired (principal); I10 Essential (primary) hypertension; I50.9 Heart failure, unspecified; N18.4 Chronic kidney disease, stage 4 (severe)